=== PATIENT | male | born 1980 | race Caucasian/White ===

== ENCOUNTER 2021-01-30 22:24 | Emergency (ER) | payer BC ==
[~2021-01-30 22:24] MED LIST: GENTAMICIN EYE D5 ML OD; PROVENTIL0.09 MG/Ac IH
[2021-01-30] MEDS ORDERED: PEPCID COMPLET1 EACH PO (22:37)
[2021-01-30] MEDS ORDERED: NORCO 325 MG-51 TA1 PO (23:34)
[2021-01-31 00:09] VITALS: BP 126/85
== END 2021-01-31 00:09 | disposition home or self-care (01) ==
LOC: ED 22:24
DX: M25.511 Pain in right shoulder (principal); K21.9 Gastro-esophageal reflux disease without esophagitis; F17.210 Nicotine dependence, cigarettes, uncomplicated; W01.0XXA Fall on same level from slipping, tripping and stumbling without subsequent striking against object, initial encounter; Y92.007 Garden or yard of unspecified non-institutional (private) residence as the place of occurrence of the external cause
CPT/HCPCS: A4565